=== PATIENT | male | born 1995 | race African-American/Black ===

== ENCOUNTER 2021-10-27 18:43 | Emergency (ER) | payer MEDICAID ==
[~2021-10-27] VITALS: Ht 193 cm; Wt 104.5 kg
[2021-10-27 19:07] VITALS: BP 130/56
== END 2021-10-28 | disposition left against medical advice (07) ==
LOC: EMS 18:45
DX: Z53.21 Procedure and treatment not carried out due to patient leaving prior to being seen by health care provider (principal)